=== PATIENT | female | born 1990 | race African-American/Black ===

== ENCOUNTER 2020-11-09 18:37 | Emergency (ER) | payer OTHER ==
[2020-11-09] MEDS ORDERED: NALOXONE 2MG/2ML SYRINGE (J2310 PER 1MG) As Ordered ONE ×2 (18:41→18:43)
[2020-11-09] MEDS ORDERED: NALOXONE 2MG/2ML SYRINGE (J2310 PER 1MG) IV STA ×2 (18:42→18:45)
[2020-11-09] MEDS ORDERED: ETOMIDATE INJ 20MG/10ML VIAL IV STA (18:47)
[2020-11-09] MEDS ORDERED: SUCCINYLCHOLINE INJ 200 MG/10 ML VIAL (J0330) IV STA (18:48)
[2020-11-09] MEDS: propofoL 1,000 MG in IV 1 EA IV SCH ×2 (18:55→19:07)
[2020-11-09 19:21] LABS: BASO # 0.1 10^3/uL (0.0-0.2); BASO % 0.4 % (0.0-1.0); EOS # 0.2 10^3/uL (0.0-0.5); HEMATOCRIT 39.3 % (36.0-47.0); HEMOGLOBIN 11.8 g/dl (12.0-15.5); LYMPH # 6.4 10^3/uL (1.5-5.0); LYMPH % 33.7 % (24.0-44.0); MEAN CORPUSCULAR HEMOGLOBIN 24.4 pg (27.0-33.0); MEAN CORPUSCULAR VOLUME 81.4 fl (80.0-96.0); MONO # 1.6 10^3/uL (0.0-0.8); MONO % 8.4 % (2.0-8.0); NEUTROPHILS # 10.6 10^3/uL (1.5-8.5); RED BLOOD COUNT 4.83 10^6/uL (4.00-5.40)
--- NOTE | 2020-11-09 19:21 | REP ---
INDICATION: Altered Mental Status. COMPARISON: No comparison chest x-ray. TECHNIQUE: Portable upright AP chest radiograph. FINDINGS: Endotracheal tube is seen in good position at the level of the transverse aorta. Nasogastric tube enters the left upper quadrant of the abdomen. EKG electrodes are present. The lungs are symmetrically aerated. No infiltrate is seen. Pleural angles are sharp. Heart is not felt to be enlarged.. IMPRESSION: No acute cardiopulmonary disease seen. And nasogastric and endotracheal tubes in good position.. <Electronically signed by Rashel Mora > 11/09/20 [id number]
[2020-11-09] MEDS ORDERED: LABETALOL 100MG/20ML VIAL IV STA (19:35)
--- NOTE | 2020-11-09 19:36 | REPVR ---
PROCEDURE INFORMATION: Exam: CT Head Without Contrast Exam date and time: 11/09/2020 7:26 PM Age: 30 years old Clinical indication: Altered mental status/memory loss TECHNIQUE: Imaging protocol: Computed tomography of the head without contrast. Radiation optimization: All CT scans at this facility use at least one of these dose optimization techniques: automated exposure control; mA and/or kV adjustment per patient size (includes targeted exams where dose is matched to clinical indication); or iterative reconstruction. Other technique: STROKE PROTOCOL was implemented. COMPARISON: No relevant prior studies available. FINDINGS: Brain: There is 3.0 x 4.5 cm intraparenchymal hemorrhage in the right cerebellum with surrounding vasogenic edema. There is acute subdural hemorrhage in the bilateral tentorial leaflets. There is a 2.9 x 1.8 cm left cerebellar hemorrhage. Cerebral ventricles: Developing hydrocephalus. Paranasal sinuses: Visualized sinuses are unremarkable. No fluid levels. Mastoid air cells: Visualized mastoid air cells are well aerated. Bones/joints: Unremarkable. No acute fracture. Soft tissues: Unremarkable. IMPRESSION: Large right cerebellar parenchyma parenchymal hemorrhage with surrounding vasogenic edema measuring 3.0 x 4.5 cm. A smaller hemorrhage measuring 2.9 x 1.8 cm in the left cerebellar hemisphere. Acute subdural hemorrhages in bilateral tentorial leaflets. Developing hydrocephalus. ASSESSMENT: ASPECTS ([place] Stroke Program Early CT Score) is 10. Electronically signed by: Nathan Dickerson On 11/09/2020 19:35:34 PM
[2020-11-09 19:38] LABS: HCG, SERUM QUALITATIVE NEGATIVE (NEGATIVE)
[2020-11-09 19:38] LABS: AMPHETAMINES LEVEL URINE NEGATIVE (NEGATIVE); BARBITURATES URINE NEGATIVE (NEGATIVE); BENZODIAZEPINES URINE NEGATIVE (NEGATIVE); CANNABINOIDS URINE NEGATIVE (NEGATIVE); COCAINE METABOLITE URINE NEGATIVE (NEGATIVE); METHADONE URINE NEGATIVE (NEGATIVE); OPIATES URINE NEGATIVE (NEGATIVE); PHENCYCLIDINE URINE NEGATIVE (NEGATIVE)
--- NOTE | 2020-11-09 19:38 | REPVR ---
PROCEDURE INFORMATION: Exam: CT Cervical Spine Without Contrast Exam date and time: 11/09/2020 7:26 PM Age: 30 years old Clinical indication: Other: AMS; Additional info: Altered mental status TECHNIQUE: Imaging protocol: Computed tomography images of the cervical spine without contrast. Radiation optimization: All CT scans at this facility use at least one of these dose optimization techniques: automated exposure control; mA and/or kV adjustment per patient size (includes targeted exams where dose is matched to clinical indication); or iterative reconstruction. COMPARISON: CR PORTABLE CHEST X-RAY 11/09/2020 6:51 PM FINDINGS: Tubes, catheters and devices: Endotracheal and nasogastric tube partially seen. Bones/joints: No acute fracture. Normal alignment. Discs/Spinal canal/Neural foramina: No significant disc protrusion. No severe spinal canal stenosis. No significant neural foraminal narrowing. Lungs: Lung apices are normal. Soft tissues: Unremarkable. IMPRESSION: No acute abnormality. Electronically signed by: Nathan Dickerson On 11/09/2020 19:38:33 PM
[2020-11-09 19:40] VITALS: BP 176/79
[2020-11-09 19:52] LABS: RSV AMPLIFICATION NEGATIVE (NEGATIVE)
[2020-11-09] MEDS ORDERED: niCARdipine IV 40 MG in IV 1 EA IV SCH (19:55)
[2020-11-09] MEDS ORDERED: MANNITOL 25% 12.5 GM/50 ML VIAL (J2150) IV ONE (20:00)
[2020-11-09] MEDS ORDERED: levETIRAcetam INJection 2,000 MG in D5W 100 ML IV ONE (20:00)
[2020-11-09 20:05] LABS: WHITE BLOOD COUNT 18.9 10^3/uL (4.0-10.0)
[2020-11-09 20:09] LABS: ACETAMINOPHEN LEVEL < 2.0 UG/ML (10.0-30.0); ALBUMIN 3.8 GM/DL (3.2-5.2); ALT/SGPT 36 U/L (12-78); BILIRUBIN,DIRECT 0.2 MG/DL (0.0-0.2); BILIRUBIN,TOTAL 0.4 MG/DL (0.2-1.0); BLOOD UREA NITROGEN 11 MG/DL (7-18); CALCIUM LEVEL 8.1 MG/DL (8.5-10.1); CARBON DIOXIDE LEVEL 24 MEQ/L (21-32); CHLORIDE LEVEL 104 MEQ/L (98-107); CK-MB VALUE MASS 2.2 NG/ML (<3.6); CPK CREATINE PHOSPHOKINASE 324 U/L (26-192); CREATININE FOR GFR 1.02 MG/DL (0.55-1.30); ETHYL ALCOHOL (ETHANOL) < 0.003 % (0.000-0.010); GLOMERULAR FILTRATION RATE > 60.0 (>60); GLUCOSE, FASTING 174 MG/DL (70-100); MB/CK RELATIVE INDEX 0.68 (< OR =4); POTASSIUM SERUM 2.8 MEQ/L (3.5-5.1); SALICYLATE LEVEL < 1.7 MG/DL (5.0-30.0); SODIUM LEVEL 138 MEQ/L (136-145); TOTAL PROTEIN 7.4 GM/DL (6.4-8.2); TROPONIN I 0.07 NG/ML (< 0.10)
[2020-11-09 20:16] LABS: OSMOLALITY SERUM 286 MOSM/KG (275-295)
[2020-11-09] MEDS ORDERED: MANNITOL 20% IV ONE (20:20)
[2020-11-09 20:23] VITALS: BP 135/60
--- NOTE | 2020-11-10 06:43 | ECGEPIP ---
[facility] - ED Test Date: 2020-11-09 Pat Name: KEVIN CISSE Department: Room: - Gender: Female Bulldozer/Loader/Compactor/Scraper: JENELLE : 1990 Requested By: ROSAURA GREENBERG Order Number: [id number] Reading MD: Hugh Rose Measurements Intervals [place] Rate: 92 P: 67 CT: 142 QRS: 66 QRSD: 90 T: 62 QT: 420 QTc: 519 Interpretive Statements Normal sinus rhythm Nonspecific ST abnormality Prolonged QT NO PRIORS FOR COMPARISON Electronically Signed on 11-10-2020 6:43:15 EDT by Hugh Rose
== END 2020-11-09 20:50 | disposition short-term general hospital (02) ==
LOC: M ED 18:37
DX: I61.9 Nontraumatic intracerebral hemorrhage, unspecified (principal)
CPT/HCPCS: 31500; 36600; 70450; 71045; 72125; 80047; 80048; 80076; 80143; 80307; 82077; 82140; 82550; 82553; 82803; 83605; 83930; 84443; 84484; 84703; 85025; 87631; 93005; 93041; 94760; 96365; 96375; 99285; J0330; J1953; J2310

== ENCOUNTER → 2021-10-27 | Outpatient (CLI) | payer OTHER ==
[~2021-10-27] MED LIST: AMLO1TAB25 PO; CLON0.2D6 TD; DIOV80TA3 PO; HYDR100T PO; LACT20EL PO; PHYT5TA PO; PROHANCE 279.3MG/ML 15ML VIAL ONE; PROHANCE 279.3MG/ML 5ML VIAL ONE
== END ==
LOC: M PLAIMG 09:30
PROVIDERS: ATTEND Student in an Organized Health Care Education/Training Program
DX: K75.4 Autoimmune hepatitis (principal); Z76.82 Awaiting organ transplant status; R93.2 Abnormal findings on diagnostic imaging of liver and biliary tract
CPT/HCPCS: 74183; A9576

== ENCOUNTER → 2021-11-09 | Outpatient (CLI) | payer OTHER ==
[~2021-11-09] MED LIST changes: -PROHANCE 279.3MG/ML 15ML VIAL ONE; -PROHANCE 279.3MG/ML 5ML VIAL ONE
== END ==
LOC: M WHC 06:59
PROVIDERS: ATTEND Student in an Organized Health Care Education/Training Program
DX: K75.4 Autoimmune hepatitis (principal)

== ENCOUNTER → 2021-12-15 | Outpatient (CLI) | payer OTHER | LOC: M PLAIMG 10:40 | DX: Q28.2 Arteriovenous malformation of cerebral vessels (principal) ==

== ENCOUNTER → 2024-05-29 | Outpatient (CLI) | payer MEDICARE, OTHER ==
[~2024-05-29] MED LIST changes: +MEPH5TAB6 PO; -PHYT5TA PO
== END ==
LOC: M RAD 08:46
PROVIDERS: ATTEND Student in an Organized Health Care Education/Training Program
DX: K75.4 Autoimmune hepatitis (principal); R16.0 Hepatomegaly, not elsewhere classified